=== PATIENT | female | born 1970 | race Caucasian/White ===

== ENCOUNTER 2017-07-11 10:21 | Inpatient (IN) | payer OTHER ==
[~2017-07-11] VITALS: Ht 170.2 cm; Wt 182.8 kg
[~2017-07-11 10:21] MED LIST: ALEVE220 M1
[2017-07-11] MEDS ORDERED: ASPIRIN 81 MG CHEW TAB PO STA (10:23)
[2017-07-11] MEDS ORDERED: HEPARIN SOD (PORCINE) 5,000 UNIT/ML VIAL IV ONE (10:30)
--- NOTE | 2017-07-11 11:13 | Diagnostic Imaging Report ---
PROCEDURE: CT scan of the chest WITH intravenous contrast, using pulmonary embolus protocol. TECHNIQUE: The chest was scanned utilizing a multidetector helical scanner from the lung apex through the level of the adrenal glands after the IV administration of 100 cc of Isovue 370. Coronal and sagittal multiplanar reformations were obtained. COMPARISON: None. INDICATIONS: r/o pe FINDINGS: Examination is limited secondary to patient body habitus with beam hardening artifact secondary to multiple contact points with the scanning gantry. Vasculature: Multiple filling defects extend from the branch point of the left main pulmonary artery into upper and lower lobe segmental branches. Similar findings are present in the upper, lower and middle lobe branches of the right pulmonary arterial tree. Pulmonary outflow tract is at the upper limits of normal in caliber. There is right ventricular dilatation. There is no ectasia or aneurysmal dilatation of the thoracic aorta. Lungs and Airways: No air space consolidation, bronchiectasis, or fibrotic changes. Pleura: No pleural effusion or pneumothorax. Heart and mediastinum: The visualized portions of the thyroid gland appear normal. No axillary, hilar, or mediastinal lymphadenopathy. Soft tissues: Grossly unremarkable. Abdomen: Visualized portions of the liver and spleen are unremarkable. Remainder of the upper abdomen is poorly evaluated. Bones: No osseous destructive lesions. Multilevel degenerative disc changes of the thoracic spine. IMPRESSION: Bilateral acute pulmonary emboli involving lobar and segmental branches of the left upper and lower lobes, and right upper, middle, and lower lobes. Associated right ventricular dilatation suggestive of right heart strain. Findings were discussed with Dr. Kay in the emergency center at 11:10 AM 07/11/2017. Dictated by: Nain Arredondo M.D. on 07/11/2017 at 11:21 Electronically approved by: Nain Arredondo M.D. on 07/11/2017 at 11:21
--- NOTE | 2017-07-11 11:14 | Diagnostic Imaging Report ---
PROCEDURE: CHEST SINGLE (PORTABLE) COMPARISON: None. INDICATIONS: SHORTNESS OF BREATH FINDINGS: Lungs are well-inflated. No focal consolidation, pleural effusion, or pneumothorax. Cardiomediastinal contour and pulmonary vasculature are within normal limits when accounting for portable AP technique. No acute osseous abnormality. CONCLUSION: No acute cardiopulmonary abnormality. For description of bilateral pulmonary emboli refer to CT subsequently performed CT scan of the chest with contrast also from 07/11/2017. Dictated by: Nain Arredondo M.D. on 07/11/2017 at 11:22 Electronically approved by: Nain Arredondo M.D. on 07/11/2017 at 11:22
[2017-07-11] MEDS: HEPARIN 25,000U/0.45% NS 250ML 1,500 UNIT in SODIUM CHLORIDE 0.9% 250ML 0 ML IV SCH (11:15)
[2017-07-11 11:31] LABS: BASOPHILS % 0.2 % (0.0-1.0); EOSINOPHILS # (AUTO) 0.1 (0.0-0.4); EOSINOPHILS % 0.8 % (0.0-6.0); HEMOGLOBIN 14.8 g/dL (12.0-16.0); LYMPHOCYTES # (AUTO) 2.3 (1.0-3.2); LYMPHOCYTES % 23.8 % (18.0-39.1); MEAN CORPUSCULAR HEMOGLOBIN 27.4 pg (28-32); MEAN CORPUSCULAR HGB CONC 32.9 g/dL (31-35); MEAN CORPUSCULAR VOLUME 83.2 fL (81-99); MONOCYTES # (AUTO) 0.6 (0.2-0.8); MONOCYTES % 5.8 % (4.4-11.3); NEUTROPHILS # (AUTO) 6.7 (2.1-6.9); NEUTROPHILS % 69.2 % (38.7-80.0); PLATELET COUNT 225 x10e3/uL (140-360); RED BLOOD COUNT 5.41 x10e6/uL (3.6-5.1); RED CELL DISTRIBUTION WIDTH 13.3 % (11.7-14.4)
[2017-07-11 11:44] LABS: INR 0.85
[2017-07-11 11:45] LABS: PARTIAL THROMBOPLASTIN TIME 27.5 seconds (23.8-35.5)
[2017-07-11 11:51] LABS: ALANINE AMINOTRANSFERASE 16 IU/L (0-55); ALBUMIN 3.7 g/dL (3.5-5.0); ALBUMIN/GLOBULIN RATIO 0.9 (0.8-2.0); ALKALINE PHOSPHATASE 72 IU/L (40-150); ANION GAP 14.1 mmol/L (8-16); BLOOD UREA NITROGEN 13 mg/dL (7-26); BUN/CREATININE RATIO 16 (6-25); CALCIUM 9.7 mg/dL (8.4-10.2); CARBON DIOXIDE 22 mmol/L (22-29); CHLORIDE 109 mmol/L (98-107); CREATINE KINASE 88 IU/L (29-168); EST GLOMERULAR FILTRATION RATE > 60 ML/MIN (60-); GLUCOSE 119 mg/dL (74-118); POTASSIUM 4.1 mmol/L (3.5-5.1); SODIUM 141 mmol/L (136-145)
[2017-07-11] MEDS ORDERED: LISINOPRIL2.5 MG PO (12:54)
[2017-07-11 13:22] LABS: BILIRUBIN,URINE NEGATIVE (NEGATIVE); KETONES,URINE NEGATIVE (NEGATIVE); LEUKOCYTE ESTERASE ,URINE NEGATIVE (NEGATIVE); NITRITE,URINE NEGATIVE (NEGATIVE); PREGNANCY TEST, URINE NEGATIVE (NEGATIVE); PROTEIN,URINE DIPSTICK NEGATIVE (NEGATIVE); URINE UROBILINOGEN 0.2 mg/dL (0.2 - 1)
[2017-07-11 13:24] LABS: CLARITY,URINE CLEAR (CLEAR); COLOR,URINE YELLOW (YELLOW)
[2017-07-11 13:42] LABS: EPITHELIAL CELLS,URINE MANY /LPF
[2017-07-11 13:43] LABS: WBC,URINE (MAN) 0-5 /HPF (0-5)
--- NOTE | 2017-07-11 14:49 | Consultation ---
DATE OF CONSULTATION: July 11, 2017 PULMONARY/CRITICAL CARE CONSULTATION PRIMARY CARE PHYSICIAN: Dr. Geoff Peter REASON FOR CONSULTATION: Acute pulmonary embolism. CHIEF COMPLAINTS: Shortness of breath. HPI: Ms. Collins is a 47-year-old female. She is a regular patient of Dr. Barros. She presented to the emergency room with worsening shortness of breath for the last 3 days. She was getting short of breath on walking short distances in and around the house, which is something new for her. She went to see Dr. Barros in the office where she became hypoxic, and she was transferred to the emergency room. She reported episodes of dizziness, near syncope and numbness and tingling in her arm as well. She denies any chest pain, nausea, vomiting, diarrhea or focal weakness. REVIEW OF SYSTEMS GENERAL: Denies any fever or chills. HEENT: Denies any head trauma or head injury. ENT: Denies any earache, nosebleed, throat pain. CVS: Denies any chest pain. RESPIRATORY: As in HPI. GI: Denies any nausea or vomiting. OTHER: The rest of the review of systems are negative except as in HPI. PAST MEDICAL HISTORY: Hypertension. PAST SURGICAL HISTORY: Knee replacement a year ago. FAMILY AND SOCIAL HISTORY: She is a lifelong nonsmoker. Does not drink. Denies any family history of blood clots. PHYSICAL EXAMINATION VITAL SIGNS: Temperature 98.6, pulse of 96, blood pressure 136/91, respiratory rate 18 to 20 per minute. O2 sat is 96% on 4 L nasal cannula. SKIN: Warm and dry. GENERAL APPEARANCE: Morbidly obese, awake and alert, following commands. HEENT: Head is atraumatic and normocephalic. Pupils are reactive. NECK: Supple. No JVD. Thyroid not enlarged. CHEST: Clear to auscultation bilaterally. No wheezing. No crackles. HEART: S1, S2 audible. ABDOMEN: Soft. Nontender and nondistended. EXTREMITIES: Trace pedal edema. NEUROLOGIC: Awake and alert, following commands, responding to questions appropriately. CT OF THE CHEST: I reviewed the films. Patient has large pulmonary embolism, which is bilateral, involving the lobar branches and subsegmental branches. ECHOCARDIOGRAM: RV strain. EKG: S1Q3T3 pattern. LABS: White count 9.7, hemoglobin 14.8, platelets 225. Chemistries: Sodium 141, potassium 4.1, chloride 109, BUN 13, creatinine 0.8. BNP 332. Troponin is 0.250. ASSESSMENT AND PLAN: Jaida Collins is a 47-year-old female who presented with worsening shortness of breath. CT is showing evidence of pulmonary embolism. No recent travel. No history of malignancy. No recent trauma or hospitalization. 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 No family history of blood clots as well. CURRENT PROBLEMS 1. Acute pulmonary embolism. 2. Acute hypoxic respiratory failure secondary to pulmonary embolism. 3. Right ventricular strain secondary to pulmonary embolism. PLAN 1. I will continue the patient on heparin as started. 2. At this point, the patient is hemodynamically stable. Blood pressure and heart rate have been stable, so no indication for thrombolytics. However, respiratory status is precarious. Recommend observing the patient in ICU. Discussed with the ER physician, also discussed with Dr. Peter. cc time 50 min Thank you for this consult. Job#: [id number] KIARRA RICHARD
[2017-07-11] MEDS ORDERED: SODIUM CHLORIDE 0.9% 50ML 50 ML ONE (17:28)
[2017-07-11] MEDS ORDERED: IOPAMIDOL 370 MG/ML 200 ML INFUS..BTL INJ ONE (17:28)
[2017-07-11 18:47] LABS: CREATINE KINASE MB 4.3 ng/mL (0.00-5.00)
[2017-07-11 18:56] LABS: TROPONIN I 0.3 ng/mL (0-0.300)
[2017-07-12] VITALS (20 sets, daily range): BP systolic 102–126; BP diastolic 48–84
[2017-07-12] MEDS: HEPARIN 25,000U/0.45% NS 250ML 1,500 UNIT in SODIUM CHLORIDE 0.9% 250ML 0 ML IV SCH ×3 (02:00→19:15)
[2017-07-12 06:01] LABS: BASOPHILS % 0.4 % (0.0-1.0); EOSINOPHILS # (AUTO) 0.2 (0.0-0.4); EOSINOPHILS % 2.3 % (0.0-6.0); HEMATOCRIT 38.6 % (34.2-44.1); HEMOGLOBIN 12.5 g/dL (12.0-16.0); LYMPHOCYTES # (AUTO) 2.7 (1.0-3.2); LYMPHOCYTES % 32.9 % (18.0-39.1); MEAN CORPUSCULAR HEMOGLOBIN 27.2 pg (28-32); MEAN CORPUSCULAR HGB CONC 32.4 g/dL (31-35); MEAN CORPUSCULAR VOLUME 84.1 fL (81-99); MONOCYTES # (AUTO) 0.6 (0.2-0.8); MONOCYTES % 6.8 % (4.4-11.3); NEUTROPHILS # (AUTO) 4.6 (2.1-6.9); NEUTROPHILS % 57.2 % (38.7-80.0); PLATELET COUNT 198 x10e3/uL (140-360); RED BLOOD COUNT 4.59 x10e6/uL (3.6-5.1); RED CELL DISTRIBUTION WIDTH 13.4 % (11.7-14.4)
[2017-07-12 06:14] LABS: INR 0.95; PROTHROMBIN TIME 13.2 seconds (11.9-14.5)
[2017-07-12] MEDS ORDERED: PNEUMOCOCCAL VACCINE POLYVALENT 23 MCG/0.5 ML VIAL IM SCH (06:15)
[2017-07-12] MEDS ORDERED: INFLUENZA VIRUS VAC SPLIT INJ 0.5 ML SYR IM SCH (06:15)
[2017-07-12 06:29] LABS: ALANINE AMINOTRANSFERASE 13 IU/L (0-55); ALKALINE PHOSPHATASE 56 IU/L (40-150); ANION GAP 13.3 mmol/L (8-16); BLOOD UREA NITROGEN 15 mg/dL (7-26); BUN/CREATININE RATIO 19 (6-25); CALCIUM 8.6 mg/dL (8.4-10.2); CARBON DIOXIDE 21 mmol/L (22-29); CHLORIDE 110 mmol/L (98-107); CREATINE KINASE 103 IU/L (29-168); CREATININE, SERUM 0.77 mg/dL (0.57-1.11); EST GLOMERULAR FILTRATION RATE > 60 ML/MIN (60-); GLUCOSE 112 mg/dL (74-118); POTASSIUM 4.3 mmol/L (3.5-5.1); SODIUM 140 mmol/L (136-145)
[2017-07-12 06:40] LABS: TROPONIN I 0.537 ng/mL (0-0.300)
--- NOTE | 2017-07-12 07:07 | Diagnostic Imaging Report ---
EXAMINATION: CHEST SINGLE (PORTABLE) INDICATION: Pulmonary embolism COMPARISON: None FINDINGS: TUBES and LINES: None. LUNGS: Lungs are well inflated. Lungs are clear. There is no evidence of pneumonia or pulmonary edema. PLEURA: No pleural effusion or pneumothorax. HEART AND MEDIASTINUM: The cardiomediastinal silhouette is unremarkable. BONES AND SOFT TISSUES: No acute osseous lesion. Soft tissues are unremarkable. UPPER ABDOMEN: No free air under the diaphragm. IMPRESSION: No acute thoracic abnormality. Signed by: Dr. Kevin Benavides M.D. on 07/12/2017 7:04 AM
[2017-07-12] MEDS: ACETAMINOPHEN 325 MG TAB PO PRN (12:40)
[2017-07-12] MEDS ORDERED: HEPARIN 25,000U/0.45% NS 250ML 250 ML ONE (19:05)
[2017-07-13] VITALS (7 sets, daily range): BP systolic 123–145; BP diastolic 62–84
[2017-07-13 07:58] LABS: BASOPHILS % 0.4 % (0.0-1.0); EOSINOPHILS # (AUTO) 0.3 (0.0-0.4); EOSINOPHILS % 3.4 % (0.0-6.0); HEMATOCRIT 38.1 % (34.2-44.1); HEMOGLOBIN 12.5 g/dL (12.0-16.0); LYMPHOCYTES # (AUTO) 2.4 (1.0-3.2); LYMPHOCYTES % 33.1 % (18.0-39.1); MEAN CORPUSCULAR HEMOGLOBIN 27.6 pg (28-32); MEAN CORPUSCULAR HGB CONC 32.8 g/dL (31-35); MEAN CORPUSCULAR VOLUME 84.1 fL (81-99); MONOCYTES # (AUTO) 0.5 (0.2-0.8); MONOCYTES % 7.2 % (4.4-11.3); NEUTROPHILS # (AUTO) 4.1 (2.1-6.9); NEUTROPHILS % 55.5 % (38.7-80.0); PLATELET COUNT 203 x10e3/uL (140-360); RED BLOOD COUNT 4.53 x10e6/uL (3.6-5.1); RED CELL DISTRIBUTION WIDTH 13.2 % (11.7-14.4)
[2017-07-13 08:12] LABS: ANION GAP 11.2 mmol/L (8-16); BLOOD UREA NITROGEN 14 mg/dL (7-26); BUN/CREATININE RATIO 18 (6-25); CALCIUM 8.6 mg/dL (8.4-10.2); CARBON DIOXIDE 23 mmol/L (22-29); CHLORIDE 108 mmol/L (98-107); CREATININE, SERUM 0.79 mg/dL (0.57-1.11); EST GLOMERULAR FILTRATION RATE > 60 ML/MIN (60-); GLUCOSE 112 mg/dL (74-118); POTASSIUM 4.2 mmol/L (3.5-5.1); SODIUM 138 mmol/L (136-145)
[2017-07-13] MEDS ORDERED: HEPARIN 25,000U/0.45% NS 250ML 250 ML ONE (08:21)
[2017-07-13] MEDS: HEPARIN 25,000U/0.45% NS 250ML 1,500 UNIT in SODIUM CHLORIDE 0.9% 250ML 0 ML IV SCH (10:00)
[2017-07-14] VITALS (7 sets, daily range): BP systolic 119–152; BP diastolic 58–71
[2017-07-14] MEDS ORDERED: HEPARIN 25,000U/0.45% NS 250ML 250 ML ONE (08:34)
[2017-07-14] MEDS ORDERED: AMLODIPINE BESYLATE 5 MG TAB PO SCH (09:00)
[2017-07-14] MEDS: HEPARIN 25,000U/0.45% NS 250ML 1,500 UNIT in SODIUM CHLORIDE 0.9% 250ML 0 ML IV SCH (16:05)
[2017-07-15] VITALS (8 sets, daily range): BP systolic 108–141; BP diastolic 57–75
[2017-07-15] MEDS: ACETAMINOPHEN 325 MG TAB PO PRN (03:38)
[2017-07-15] MEDS: HEPARIN 25,000U/0.45% NS 250ML 1,500 UNIT in SODIUM CHLORIDE 0.9% 250ML 0 ML IV SCH ×2 (06:13→23:14)
[2017-07-15] MEDS: LISINOPRIL 10 MG TAB PO SCH (08:45)
[2017-07-15] MEDS: WARFARIN SOD 5 MG TAB PO SCH (16:35)
[2017-07-16] VITALS (7 sets, daily range): BP systolic 103–127; BP diastolic 57–84
[2017-07-16] MEDS: LISINOPRIL 10 MG TAB PO SCH (08:23)
[2017-07-16 08:36] LABS: INR 0.9; PROTHROMBIN TIME 12.6 seconds (11.9-14.5)
[2017-07-16] MEDS: HEPARIN 25,000U/0.45% NS 250ML 1,500 UNIT in SODIUM CHLORIDE 0.9% 250ML 0 ML IV SCH (10:05)
[2017-07-16] MEDS: WARFARIN SOD 5 MG TAB PO SCH (16:35)
[2017-07-17] VITALS (8 sets, daily range): BP systolic 105–143; BP diastolic 58–75
[2017-07-17] MEDS: HEPARIN 25,000U/0.45% NS 250ML 25,000 UNIT in SODIUM CHLORIDE 0.9% 250ML 0 ML IV SCH (01:45)
[2017-07-17 07:36] LABS: INR 0.93; PROTHROMBIN TIME 12.9 seconds (11.9-14.5)
[2017-07-17 07:38] LABS: PARTIAL THROMBOPLASTIN TIME 69.9 seconds (23.8-35.5)
[2017-07-17] MEDS: LISINOPRIL 10 MG TAB PO SCH (10:40)
[2017-07-17] MEDS ORDERED: WARFARIN SOD 5 MG TAB PO ONE (15:15)
[2017-07-17] MEDS: WARFARIN SOD 5 MG TAB PO SCH (17:36)
[2017-07-18] VITALS: BP 104/57
[2017-07-18 04:00] VITALS: BP 105/57
[2017-07-18] MEDS: HEPARIN 25,000U/0.45% NS 250ML 25,000 UNIT in SODIUM CHLORIDE 0.9% 250ML 0 ML IV SCH (04:10)
[2017-07-18 07:54] LABS: INR 0.95; PROTHROMBIN TIME 13.1 seconds (11.9-14.5)
[2017-07-18 07:56] LABS: PARTIAL THROMBOPLASTIN TIME 87.8 seconds (23.8-35.5)
[2017-07-18 08:05] VITALS: BP 114/54
[2017-07-18 10:40] VITALS: BP 114/54
[2017-07-18] MEDS: LISINOPRIL 10 MG TAB PO SCH (10:40)
[2017-07-18 12:00] VITALS: BP 123/80
[2017-07-18] MEDS ORDERED: WARFARIN SOD 5 MG TAB PO SCH (17:00)
[2017-07-18] MEDS ORDERED: WARFARIN SOD 5 MG TAB PO NR (17:00)
[2017-07-18] MEDS ORDERED: HEPARIN 25,000U/0.45% NS 250ML 250 ML ONE (17:16)
[2017-07-18 20:00] VITALS: BP 125/68
[2017-07-19] VITALS (7 sets, daily range): BP systolic 116–149; BP diastolic 53–86
[2017-07-19] MEDS: HEPARIN 25,000U/0.45% NS 250ML 25,000 UNIT in SODIUM CHLORIDE 0.9% 250ML 0 ML IV SCH ×2 (04:41→22:00)
[2017-07-19] MEDS ORDERED: HEPARIN 25,000U/0.45% NS 250ML 250 ML ONE (04:44)
[2017-07-19 07:48] LABS: INR 1.11; PROTHROMBIN TIME 14.9 seconds (11.9-14.5)
[2017-07-19] MEDS: LISINOPRIL 10 MG TAB PO SCH (09:53)
--- NOTE | 2017-07-19 12:34 | Consultation ---
DATE OF CONSULTATION: July 15, 2017 REQUESTING PHYSICIAN: Dr. Guille Peter. HISTORY OF PRESENT ILLNESS: Jaida Savage is a 47-year-old white female who had an unprovoked pulmonary embolus, subsequently admitted for further evaluation, history of having had shortness of breath for approximately 3 days prior to seeing Dr. Barros, subsequently was found to be hypoxic, came to the emergency room and subsequently admitted for further evaluation and treatment. PAST MEDICAL ILLNESSES: History of hypertension. SURGICAL HISTORY: She has knee replacement a year back. SOCIAL HISTORY: Nonsmoker. FAMILY HISTORY: Noncontributory. ALLERGIES: REPORTED NONE. MEDICATIONS At this time: 1. Sodium chloride. 2. Lisinopril. 3. Weight-based heparin protocol. REVIEW OF SYSTEMS HEENT: Normal. CARDIAC: History of hypertension. RESPIRATORY: Now pulmonary embolus. GI: Normal. : Normal. MUSCULOSKELETAL: History of knee replacement a year back. NEUROENDOCRINE: Essentially normal. PHYSICAL EXAMINATION GENERAL: A morbidly obese female. NECK: No adenopathy. HEART: Within normal limits. LUNGS: Clear. BREASTS: Deferred. ABDOMEN: Obese. There is no hepatosplenomegaly. RECTAL: Deferred. VAGINAL: Deferred. CENTRAL NERVOUS SYSTEM: Essentially normal. EXTREMITIES: Scar of the knee replacement. LABORATORY DATA: Shows a hemoglobin of 14.8, hematocrit 45, white count of 9700, platelets of 225,000. Chemistry: Sodium of 141, potassium of 4.1, chloride 79, CO2 of 22, BUN 13, creatinine 0.8, glucose 119, calcium 9.7, bilirubin 0.5. SGOT 13, SGPT 16, alkaline phosphatase 72. BNP high at 332. Low total proteins of 6.1, low albumin of 3, globulin is 3.1. IMAGING: Confirmed CT of the chest on 07/11/2017 to show bilateral acute pulmonary emboli left upper lobe, lower lobe, right upper lobe, right middle lobe, and right lower lobe. IMPRESSION 1. Pulmonary embolus, unprovoked. 2. Hypoproteinemia (6.1). 3. Hypoalbuminemia (3.1). 4. Hypertension. 5. History of endocervical polyp excised on 05/21/2016. 6. Morbid obesity. PLAN, COMMENTS AND SUGGESTIONS 1. Suggest to add Coumadin. 2. Since this is unprovoked, at least the literature is to keep these patients on "long-term" anticoagulation; however, the patient could be given 6 months of aggressive anticoagulation, keep the INR between 2 and 3, take the Coumadin off for 1 month, do a thorough thrombophilia profile. If she does have thrombophilia, she does qualify for lifetime anticoagulation. I certainly suggest long-term anticoagulation in this lady because this was an unprovoked massive pulmonary emboli. Thank you very much for allowing me to participate in management of this patient. I will follow this patient during this hospitalization. Job#: [id number] VAS cc:MD James Colon MD
[2017-07-19] MEDS: WARFARIN SOD 5 MG TAB PO SCH (17:00)
[2017-07-19] MEDS: ACETAMINOPHEN 325 MG TAB PO PRN (20:30)
[2017-07-20] VITALS (8 sets, daily range): BP systolic 105–133; BP diastolic 63–88
[2017-07-20 04:22] LABS: INR 1.33; PROTHROMBIN TIME 17.2 seconds (11.9-14.5)
[2017-07-20] MEDS: ACETAMINOPHEN 325 MG TAB PO PRN (04:48)
[2017-07-20] MEDS: LISINOPRIL 10 MG TAB PO SCH (08:33)
[2017-07-20] MEDS ORDERED: WARFARIN SOD 3 MG TAB PO ONE ×2 (11:00→15:00)
[2017-07-20] MEDS ORDERED: HEPARIN 25,000U/0.45% NS 250ML 250 ML ONE (15:07)
[2017-07-20] MEDS: HEPARIN 25,000U/0.45% NS 250ML 25,000 UNIT in SODIUM CHLORIDE 0.9% 250ML 0 ML IV SCH (15:08)
[2017-07-20] MEDS: WARFARIN SOD 5 MG TAB PO SCH (16:29)
[2017-07-21] VITALS (8 sets, daily range): BP systolic 103–113; BP diastolic 51–80
[2017-07-21] MEDS: LISINOPRIL 10 MG TAB PO SCH (08:10)
[2017-07-21 09:57] LABS: INR 1.4; PROTHROMBIN TIME 17.9 seconds (11.9-14.5)
[2017-07-21] MEDS ORDERED: WARFARIN SOD 3 MG TAB PO ONE ×2 (11:30→17:00)
[2017-07-21] MEDS: HEPARIN 25,000U/0.45% NS 250ML 25,000 UNIT in SODIUM CHLORIDE 0.9% 250ML 0 ML IV SCH (12:28)
[2017-07-21] MEDS ORDERED: HEPARIN 25,000U/0.45% NS 250ML 250 ML ONE (12:29)
[2017-07-21] MEDS: WARFARIN SOD 5 MG TAB PO SCH (16:40)
[2017-07-22] VITALS (7 sets, daily range): BP systolic 111–141; BP diastolic 55–86
[2017-07-22 06:02] LABS: INR 1.61
[2017-07-22] MEDS: LISINOPRIL 10 MG TAB PO SCH (11:00)
[2017-07-22] MEDS: HEPARIN 25,000U/0.45% NS 250ML 25,000 UNIT in SODIUM CHLORIDE 0.9% 250ML 0 ML IV SCH (14:31)
[2017-07-22] MEDS ORDERED: HEPARIN 25,000U/0.45% NS 250ML 250 ML ONE (14:34)
[2017-07-22] MEDS ORDERED: WARFARIN SOD 3 MG TAB PO ONE (17:00)
[2017-07-22] MEDS: WARFARIN SOD 5 MG TAB PO SCH (17:05)
[2017-07-23] VITALS: BP 108/63
[2017-07-23 04:00] VITALS: BP 109/53
[2017-07-23 08:30] LABS: INR 1.89; PROTHROMBIN TIME 22.7 seconds (11.9-14.5)
[2017-07-23 09:51] VITALS: BP 129/60
[2017-07-23 09:55] VITALS: BP 129/60
[2017-07-23] MEDS: LISINOPRIL 10 MG TAB PO SCH (11:19)
[2017-07-23] MEDS ORDERED: INFLUENZA VIRUS VAC SPLIT INJ 0.5 ML SYR IM ONE (13:23)
[2017-07-23] MEDS ORDERED: PNEUMOCOCCAL VACCINE POLYVALENT 23 MCG/0.5 ML VIAL ONE (13:23)
[2017-07-23 14:34] VITALS: BP 129/66
== END 2017-07-23 13:50 | disposition home or self-care (01) | DRG 175 ==
LOC: ER 10:21 → ERHOLD 12:25 → ICU 23:53 → MED/SURG 07-12 10:41
DX: I26.99 Other pulmonary embolism without acute cor pulmonale (principal); J96.01 Acute respiratory failure with hypoxia; Z68.44 Body mass index [BMI] 60.0-69.9, adult; I82.4Y2 Acute embolism and thrombosis of unspecified deep veins of left proximal lower extremity; I10 Essential (primary) hypertension; E66.01 Morbid (severe) obesity due to excess calories; E77.8 Other disorders of glycoprotein metabolism; E88.09 Other disorders of plasma-protein metabolism, not elsewhere classified; I51.89 Other ill-defined heart diseases
CPT/HCPCS: 36415; 71010; 71260; 80048; 80053; 81001; 81025; 82550; 82553; 83880; 84484; 85025; 85610; 85730; 90732; 93005; 93306; 93970; 96361; 96365; 99284; J1644; J7050; Q9967

== ENCOUNTER → 2017-08-05 | Outpatient (CLI) | payer OTHER ==
[~2017-08-05] MED LIST changes: +LISINOPRIL2.5 MG PO
--- NOTE | 2017-08-20 08:24 | Diagnostic Imaging Report ---
#[id number] - MGSCRBIL #BILATERAL FIRST EVER DIGITAL SCREENING MAMMOGRAM WITH CAD: 08/05/2017 CLINICAL: Routine screening. Baseline exam. No prior exams were available for comparison. Current study contains 8 films. The tissue of both breasts is predominantly fatty. Current study was also evaluated with a Computer Aided Detection (CAD) system. There are benign calcifications in the left breast. No significant masses, calcifications, or other findings are seen in either breast. IMPRESSION: BENIGN There is no mammographic evidence of malignancy. A 1 year screening mammogram is recommended. The patient will be notified by letter of the results. David Whitneygarcia romero/mirella:08/19/2017 07:54:45 [employer] Crewmember: Amber GARCIA)(M), [facility] letter sent: Normal Exam Mammogram BI-RADS: 2 Benign
== END ==
LOC: MAMMO 10:11
PROVIDERS: ATTEND Family Medicine
DX: Z12.31 Encounter for screening mammogram for malignant neoplasm of breast (principal)
CPT/HCPCS: 77067

== ENCOUNTER → 2019-05-05 | Day surgery (SDC) | payer OTHER ==
[~2019-05-05] VITALS: Ht 172.7 cm; Wt 186.0 kg
[~2019-05-05] MED LIST changes: +ALPRAZOLAM 0.5 MG TAB ONE; +ATORVASTATIN CA20 MG PO; +BENICAR HCT 401 EAC1 PO; +DIPHENHYDRAMINE HCL 25 MG CAP ONE; +FENTANYL CITRATE/PF 100MCG/2 ML INJ ONE; +HEPARIN SOD/SOD CHLORIDE 2,000 ML ONE; +LIDOCAINE HCL 2% LOCAL 20 ML VIAL ONE; +MIDAZOLAM HCL 2 MG/2 ML VIAL ONE; +SODIUM CHLORIDE 0.9% 1000ML 1,000 ML ONE; +XARELTO20 MG PO; +ZETIA10 MG PO
--- OUTSIDE RECORDS SUMMARY | 2019-05-05 11:32 | XMS REPORT ---
Author Author [facility] Address Unknown Phone Unavailable Care Team Providers Care Secondary Teacher Name Role Phone SUN MARTÍNEZ Unavailable Unavailable TOM WELCH Unavailable Unavailable Problems This patient has no known problems. Allergies, Adverse Reactions, Alerts This patient has no known allergies or adverse reactions. Medications This patient has no known medications. Results Test Description Test Time Test Comments Text Results Atomic Results Result Comments MAMMOGRAPHY DIGITAL SCR BILAT [place] [address] Patient Name: LEANDRO MAST MR #: [id number] : 1970 Age/Sex: 47/F Req #: [id number] Adm Physician: Ordered by: SUN MARTÍNEZ DO Report #: [id number] Location: MAMMO Room/Bed: Procedure: [id number] MG/MAMMOGRAPHY DIGITAL SCR BILAT Exam Date: 08/05/17 Exam Time: 1030 REPORT STATUS: Signed #[id number] - MGSCRBIL #BILATERAL FIRST EVER DIGITAL SCREENING MAMMOGRAM WITH CAD: 08/05/2017 CLINICAL: Routine screening. Baseline exam. No prior exams were available for comparison. Current study contains 8 films. The tissue of both breasts is predominantly fatty. Current study was also evaluated with a Computer Aided Detection (CAD) system. There are benign calcifications in the left breast. No significant masses, calcifications, or other findings are seen in either breast. IMPRESSION: BENIGN There is no mammographic evidence of malignancy. A 1 year screening mammogram is recommended. The patient will be notified by letter of the results. Arslan romero/sean:08/19/2017 07:54:45 Media Job Titles: Amber GARCIA)(Brian), [facility] letter sent: Normal Exam Mammogram BI-RADS: 2 Benign Dictated By: ARSLAN RUBIN DO 3 Transcribed By: SEAN on 08/19/17753 COPY TO: SUN MARTÍNEZ DO CHEST SINGLE (PORTABLE) [place] [address] Patient Name: LEANDRO MAST MR #: [id number] : 1970 Age/Sex: 47/F Req #: [id number] Adm Physician: TOM WELCH MD Ordered by: LUCAS ROJAS NUT TAPPER Report #: [id number] Location: ICU Room/Bed: ICU [facility] Procedure: [id number] DX/CHEST SINGLE (PORTABLE) Exam Date: 07/12/17 Exam Time: 0620 REPORT STATUS: Signed EXAMINATION: CHEST SINGLE (PORTABLE) INDICATION: Pulmonary embolism COMPARISON: None FINDINGS: TUBES and LINES: None. LUNGS: Lungs are well inflated. Lungs are clear. There is no evidence of pneumonia or pulmonary edema. PLEURA: No pleural effusion or pneumothorax. HEART AND MEDIASTINUM: The cardiomediastinal silhouette is unremarkable. BONES AND SOFT TISSUES: No acute osseous lesion. Soft tissues are unremarkable. UPPER ABDOMEN: No free air under the diaphragm. IMPRESSION: No acute thoracic abnormality. Signed by: Dr. Kevin Benavides M.D. on 07/12/2017 7:04 AM Dictated By: KEVIN RIZO MD 3 Transcribed By: DEVONTE on 07/12/17703 COPY TO: LUCAS ROJAS NP CT CHEST W [place] [address] Patient Name: LEANDRO MAST MR #: [id number] : 1970 Age/Sex: 47/F Req #: [id number] Adm Physician: Ordered by: JULITA AGUILAR MD Report #: [id number] Location: ER Room/Bed: Procedure: [id number] CT/CT CHEST W Exam Date: 07/11/17 Exam Time: 1040 REPORT STATUS: Signed PROCEDURE: CT scan of the chest WITH intravenous contrast, using pulmonary embolus protocol. TECHNIQUE: The chest was scanned utilizing a multidetector helical scanner from the lung apex through the level of the adrenal glands after the IV administration of 100 cc of Isovue 370. Coronal and sagittal multiplanar reformations were obtained. COMPARISON: None. INDICATIONS: r/o pe FINDINGS: Examination is limited secondary to patient body habitus with beam hardening artifact secondary to multiple contact points with the scanning gantry. Vasculature: Multiple filling defects extend from the branch point of the left main pulmonary artery into upper and lower lobe segmental branches. Similar findings are present in the upper, lower and middle lobe branches of the right pulmonary arterial tree. Pulmonary outflow tract is at the upper limits of normal in caliber. There is right ventricular dilatation. There is no ectasia or aneurysmal dilatation of the thoracic aorta. Lungs and Airways: No air space consolidation, bronchiectasis, or fibrotic changes. Pleura: No pleural effusion or pneumothorax. Heart and mediastinum: The visualized portions of the thyroid gland appear normal. No axillary, hilar, or mediastinal lymphadenopathy. Soft tissues: Grossly unremarkable. Abdomen: Visualized portions of the liver and spleen are unremarkable. Remainder of the upper abdomen is poorly evaluated. Bones: No osseous destructive lesions. Multilevel degenerative disc changes of the thoracic spine. IMPRESSION: Bilateral acute pulmonary emboli involving lobar and segmental branches of the left upper and lower lobes, and right upper, middle, and lower lobes. Associated right ventricular dilatation suggestive of right heart strain. Findings were discussed with Dr. Aguilar in the emergency center at 11:10 AM 07/11/2017. Dictated by: Santi Paulino M.D. on 07/11/2017 at 11:21 Electronically approved by: Santi Paulino M.D. on 07/11/2017 at 11:21 Dictated By: SANTI PAULINO MD 1121 Transcribed By: LORA on 07/11/17 1121 COPY TO: JULITA AGUILAR MD CHEST SINGLE (PORTABLE) [place] [address] Patient Name: LEANDRO MAST MR #: [id number] : 1970 Age/Sex: 47/F Req #: [id number] Adm Physician: Ordered by: JULITA AGUILAR MD Report #: [id number] Location: ER Room/Bed: Procedure: [id number] DX/CHEST SINGLE (PORTABLE) Exam Date: 07/11/17 Exam Time: 1100 REPORT STATUS: Signed PROCEDURE: CHEST SINGLE (PORTABLE) COMPARISON: None. INDICATIONS: SHORTNESS OF BREATH FINDINGS: Lungs are well-inflated. No focal consolidation, pleural effusion, or pneumothorax. Cardiomediastinal contour and pulmonary vasculature are within normal limits when accounting for portable AP technique. No acute osseous abnormality. CONCLUSION: No acute cardiopulmonary abnormality. For description of bilateral pulmonary emboli refer to CT subsequently performed CT scan of the chest with contrast also from 07/11/2017. Dictated by: Santi Paulino M.D. on 07/11/2017 at 11:22 Electronically approved by: Santi Paulino M.D. on 07/11/2017 at 11:22 Dictated By: SANTI PAULINO MD 1122 Transcribed By: LORA on 07/11/17 1122 COPY TO: JULITA AGUILAR MD
[2019-05-05 14:07] VITALS: BP 128/64
--- NOTE | 2019-05-05 17:00 | NUR ---
bedside report received from Demetrius Streeter RN. Alert oriented and appropriate, PERRLA, respirations even and unlabored to room air. Pulses x4 extremities equal and strong. + neurovascular function to right hand present. TR band present. Cap fill brisk < 3 sec. Skin warm and dry integrity appears intact. IV 22g to left hand presents healthy w/o s/s of infiltration or complaint. Abdomen soft and supple. pt offered toileting, denies need to urinate or defecate. No personal affects with patient. Family at bedside. Pt and family verbalizes understanding of DC requirements and teaching. Placed on bedside monitor ACU 8. Currently w/o complaint of pain or need. bed low and locked , side rails up x2 , call light within reach.
--- NOTE | 2019-05-05 17:45 | NUR ---
TR band successfully removed w/o incident. 7Fr sheath removed form Right AC . Discharge teaching performed and repeated back. VS wnl. No acute changes. from baseline
--- NOTE | 2019-05-05 18:15 | NUR ---
Pt meets DC criteria. right radial assessed for s/s of complication and presence of hematoma. Overall skin warm, dry, no discolor, and pulses present. IV removed from left hand. Distal tip appears intact. VS WNL. Pt denies pain, sob, or need at this time. Family at bedside. Review of discharge paperwork and follow up instructions. wrist brace reinforced removal next day with dressing. verbalized understanding. Pt to wheelchair and transported to front of hospital. Transferred to private vehicle under own strength w/o incident with DC paperwork in hand. - cgf
--- NOTE | 2019-05-06 15:41 | Operative Report ---
DATE OF PROCEDURE: 05/05/2019 SURGEON: João Nicholson MD CARDIAC STEM SHAPER PROCEDURE NOTE INDICATION: 1. Coronary artery disease, abnormal stress test. 2. Congestive heart failure. PROCEDURES PERFORMED: 1. Left heart catheterization, selective coronary angiography. 2. Balloon flotation right heart catheterization. 3. Deployment right wrist TR band. COMPLICATIONS: None. RECOMMENDATIONS: Medical therapy. DESCRIPTION OF PROCEDURE: Access obtained in the right radial artery using ultrasound guidance. A 5-Yakut sheath was placed. Access obtained in the right cephalic vein using ultrasound guidance, seven-Yakut sheath was placed. Balloon flotation right heart catheterization revealed normal findings including pulmonary artery pressure 38/12 with a mean of 15 mmHg. Pulmonary capillary wedge pressure 11 mmHg. Right atrial pressure 10 mmHg. Cardiac output 6.4 L a minute. LV end-diastolic pressure of 12 mmHg. Coronary angiography was performed with demonstrating minimal coronary artery disease, 10% luminal stenosis diffusely. No critical stenosis or occlusions. No intervention was deemed necessary. Right wrist TR band applied. Seven-Yakut sheath under manual pressure. The patient discharged home same day. João Nicholson MD KSB/MODL /[id number]
--- NOTE | 2019-05-25 16:17 | Operative Report ---
DATE OF PROCEDURE: 05/05/2019 SURGEON: João Nicholson MD INDICATIONS: Coronary artery disease and congestive heart failure. PROCEDURES PERFORMED: 1. Left heart catheterization, selective coronary angiography. 2. Right heart catheterization. COMPLICATIONS: None. RECOMMENDATIONS: Medical therapy. DESCRIPTION OF PROCEDURE: Access obtained in the right radial artery. A 5-Faroese sheath was placed. Access obtained in the right cephalic vein. A 7-Faroese sheath was placed. Balloon flotation [place] catheterization demonstrated normal right heart catheterization. Cardiac output 6.4 L. Mean pulmonary artery pressure of 15 mmHg. Coronary angiography demonstrated minimal coronary artery disease of 10% diffuse stenosis. No critical stenosis or occlusion noted. LV end-diastolic pressure of 12. No gradient across the aortic valve on pullback. Right wrist TR band applied. Venous sheath removed under manual pressure. The patient discharged home the same day. João Nicholson MD KSB/MODL /[id number]
== END | disposition home or self-care (01) ==
LOC: CATH LAB 11:22
PROVIDERS: ATTEND Internal Medicine Interventional Cardiology
DX: I25.118 Atherosclerotic heart disease of native coronary artery with other forms of angina pectoris (principal); R94.39 Abnormal result of other cardiovascular function study; I50.9 Heart failure, unspecified; Z01.812 Encounter for preprocedural laboratory examination; Z79.02 Long term (current) use of antithrombotics/antiplatelets
CPT/HCPCS: 36415; 84702; 93460; C1751; C1766; C1769 ×3; C1887; J2001; J2250; J3010; J7030

== ENCOUNTER → 2022-05-30 | Outpatient (CLI) | payer OTHER ==
[~2022-05-30] MED LIST changes: -ALPRAZOLAM 0.5 MG TAB ONE; -DIPHENHYDRAMINE HCL 25 MG CAP ONE; -FENTANYL CITRATE/PF 100MCG/2 ML INJ ONE; -HEPARIN SOD/SOD CHLORIDE 2,000 ML ONE; +IOPAMIDOL 370 MG/ML 100 ML INFUS..BTL INJ ONE; -LIDOCAINE HCL 2% LOCAL 20 ML VIAL ONE; -MIDAZOLAM HCL 2 MG/2 ML VIAL ONE; -SODIUM CHLORIDE 0.9% 1000ML 1,000 ML ONE
[2022-05-30 09:34] LABS: CREATININE, SERUM 0.79 mg/dL (0.57-1.11)
== END ==
LOC: CT 08:07
PROVIDERS: ATTEND Family Medicine
DX: R19.05 Periumbilic swelling, mass or lump (principal)
CPT/HCPCS: 36415; 74177; 82565; 84520; Q9967

== ENCOUNTER → 2022-07-23 | Day surgery (SDC) | payer OTHER ==
[2022-07-20 09:43] LABS: BASOPHILS % 0.5 % (0.0-1.0); EOSINOPHILS # (AUTO) 0.1 (0.0-0.4); EOSINOPHILS % 1.7 % (0.0-6.0); HEMATOCRIT 45.6 % (34.2-44.1); HEMOGLOBIN 13.6 g/dL (12.0-16.0); LYMPHOCYTES # (AUTO) 2.1 (1.0-3.2); LYMPHOCYTES % 32.3 % (18.0-39.1); MEAN CORPUSCULAR HEMOGLOBIN 26.6 pg (28-32); MEAN CORPUSCULAR HGB CONC 29.8 g/dL (31-35); MEAN CORPUSCULAR VOLUME 89.2 fL (81-99); MONOCYTES # (AUTO) 0.4 (0.2-0.8); MONOCYTES % 5.6 % (4.4-11.3); NEUTROPHILS # (AUTO) 3.9 (2.1-6.9); NEUTROPHILS % 59.6 % (38.7-80.0); PLATELET COUNT 323 x10e3/uL (140-360); RED BLOOD COUNT 5.11 x10e6/uL (3.6-5.1); RED CELL DISTRIBUTION WIDTH 13.4 % (11.7-14.4)
[2022-07-20 10:08] LABS: CALCIUM 9.7 mg/dL (8.4-10.2); CREATININE, SERUM 0.91 mg/dL (0.57-1.11)
[2022-07-20 12:44] LABS: EOSINOPHILS % (MANUAL) 12 % (0-7); LYMPHOCYTES % (MANUAL) 26 % (19-48); MONOCYTES % (MANUAL) 5 % (3.4-9.0); NEUTROPHILS % (MANUAL) 51 % (40-74); PLATELET ESTIMATE ADEQUATE; PLATELET MORPHOLOGY COMMENT NORMAL; RBC MORPHOLOGY COMMENT NORMAL
[~2022-07-23] MED LIST changes: +ACETAMINOPHEN 1000 MG/100 ML 100 ML IV ONE; +BUPIVACAINE 0.5%/EPI 30 ML SDV INJ ONE; +BUPIVACAINE HCL 0.5% INJ 30 ML VIAL INJ ONE; +CEFAZOLIN SODIUM 2 GM ONE; +DEXAMETHASONE SOD PHOS INJ 4 MG/ML SDV ONE; +DEXMEDETOMIDINE HCL 2 ML ONE; +ENOXAPARIN SOD INJ 40 MG/0.4 ML SYR SC ONE; +EPHEDRINE SULFATE INJ 50 MG/ML VIAL ONE; +FENTANYL CITRATE/PF 100MCG/2 ML INJ ONE; +FISH OIL 1,2001 EAC1; +FISH OIL 1,2001 EACH; +GLYCOPYRROLATE INJ 0.2 MG/ML VIAL ONE; +HYDROCODONE/APAP 7.5MG-325MG 1 EA TAB ONE; +HYDROMORPHONE 1MG/1ML INJ ONE; -IOPAMIDOL 370 MG/ML 100 ML INFUS..BTL INJ ONE; +KETAMINE HCL INJ 50 MG/ML 10 ML VIAL ONE; +LIDOCAINE HCL 2% LOCAL INJ 5 ML SDV VIAL INJ ONE; +MIDAZOLAM HCL 2 MG/2 ML VIAL ONE; +ONDANSETRON HCL INJ 2MG/ML 2ML 2 MG/ML VIAL ONE; +POVIDONE IODINE 0.05% 0.05 % ML PO ONE; +PROPOFOL IV EMULSION 10 MG/ML 20 ML VIAL ONE; +ROCURONIUM BROMIDE 10 MG/ML 5ML VIAL IV ONE; +SEVOFLURANE INHAL SOLN 250 ML PEN BTL ONE; +SODIUM CHLORIDE 0.9% 100 ML ONE; +SUCCINYLCHOLINE CHLORIDE 20 MG/ML 10ML VIAL ONE; +SUGAMMADEX SODIUM 200 MG/2 ML VIAL IV ONE; +VITAMIN D310 MCG; +[UNRECOGNIZED DRUG - OTHER] SQ
[2022-07-23 11:55] VITALS: BP 116/71
== END | disposition home or self-care (01) ==
LOC: OR 07:10
PROVIDERS: ATTEND Surgery
DX: K43.6 Other and unspecified ventral hernia with obstruction, without gangrene (principal); G47.33 Obstructive sleep apnea (adult) (pediatric); E11.9 Type 2 diabetes mellitus without complications; I10 Essential (primary) hypertension; E78.5 Hyperlipidemia, unspecified; E66.9 Obesity, unspecified; Z01.810 Encounter for preprocedural cardiovascular examination; Z01.812 Encounter for preprocedural laboratory examination; Z20.822 Contact with and (suspected) exposure to COVID-19; Z79.02 Long term (current) use of antithrombotics/antiplatelets; Z79.899 Other long term (current) drug therapy; Z86.711 Personal history of pulmonary embolism
CPT/HCPCS: 0223U; 36415 ×2; 49594; 80048; 84702; 85025; 88302; 93005; C1781; J0131; J0330; J0690; J1100; J1170; J1650; J2001; J2250; J2405; J2704; J3010; J7050

== ENCOUNTER 2022-08-28 17:16 | Observation (INO) | payer OTHER ==
[~2022-08-28] VITALS: Ht 172.7 cm; Wt 186.0 kg
[~2022-08-28 17:16] MED LIST changes: -ACETAMINOPHEN 1000 MG/100 ML 100 ML IV ONE; -BUPIVACAINE 0.5%/EPI 30 ML SDV INJ ONE; -BUPIVACAINE HCL 0.5% INJ 30 ML VIAL INJ ONE; -CEFAZOLIN SODIUM 2 GM ONE; -DEXAMETHASONE SOD PHOS INJ 4 MG/ML SDV ONE; -DEXMEDETOMIDINE HCL 2 ML ONE; -ENOXAPARIN SOD INJ 40 MG/0.4 ML SYR SC ONE; -EPHEDRINE SULFATE INJ 50 MG/ML VIAL ONE; -FENTANYL CITRATE/PF 100MCG/2 ML INJ ONE; -GLYCOPYRROLATE INJ 0.2 MG/ML VIAL ONE; -HYDROCODONE/APAP 7.5MG-325MG 1 EA TAB ONE; -HYDROMORPHONE 1MG/1ML INJ ONE; -KETAMINE HCL INJ 50 MG/ML 10 ML VIAL ONE; -LIDOCAINE HCL 2% LOCAL INJ 5 ML SDV VIAL INJ ONE; -MIDAZOLAM HCL 2 MG/2 ML VIAL ONE; -ONDANSETRON HCL INJ 2MG/ML 2ML 2 MG/ML VIAL ONE; -POVIDONE IODINE 0.05% 0.05 % ML PO ONE; -PROPOFOL IV EMULSION 10 MG/ML 20 ML VIAL ONE; -ROCURONIUM BROMIDE 10 MG/ML 5ML VIAL IV ONE; -SEVOFLURANE INHAL SOLN 250 ML PEN BTL ONE; -SODIUM CHLORIDE 0.9% 100 ML ONE; -SUCCINYLCHOLINE CHLORIDE 20 MG/ML 10ML VIAL ONE; -SUGAMMADEX SODIUM 200 MG/2 ML VIAL IV ONE
[2022-08-28] MEDS ORDERED: ONDANSETRON HCL INJ 2MG/ML 2ML 2 MG/ML VIAL IV STA (17:21)
[2022-08-28] MEDS ORDERED: SODIUM CHLORIDE 0.9% 1000ML 1,000 ML IV ONE (17:30)
[2022-08-28] MEDS ORDERED: ONDANSETRON HCL INJ 2MG/ML 2ML 2 MG/ML VIAL IV PRN (17:30)
[2022-08-28 18:01] LABS: BASOPHILS % 0.3 % (0.0-1.0); EOSINOPHILS # (AUTO) 0.2 (0.0-0.4); EOSINOPHILS % 1.8 % (0.0-6.0); HEMATOCRIT 38.4 % (34.2-44.1); HEMOGLOBIN 12.3 g/dL (12.0-16.0); LYMPHOCYTES # (AUTO) 2.6 (1.0-3.2); LYMPHOCYTES % 22.5 % (18.0-39.1); MEAN CORPUSCULAR HEMOGLOBIN 26.5 pg (28-32); MEAN CORPUSCULAR VOLUME 82.6 fL (81-99); MONOCYTES # (AUTO) 0.8 (0.2-0.8); NEUTROPHILS # (AUTO) 7.8 (2.1-6.9); NEUTROPHILS % 67.9 % (38.7-80.0); PLATELET COUNT 437 x10e3/uL (140-360); RED BLOOD COUNT 4.65 x10e6/uL (3.6-5.1); RED CELL DISTRIBUTION WIDTH 13.4 % (11.7-14.4)
[2022-08-28 18:13] LABS: INR 1.43; PROTHROMBIN TIME 17.6 seconds (11.9-14.5)
[2022-08-28 18:14] LABS: PARTIAL THROMBOPLASTIN TIME 39.8 seconds (23.8-35.5)
[2022-08-28 18:23] LABS: ALANINE AMINOTRANSFERASE 19 IU/L (0-55); ALBUMIN/GLOBULIN RATIO 0.7 (0.8-2.0); ALKALINE PHOSPHATASE 96 IU/L (40-150); ANION GAP 16.7 mmol/L (8-16); BLOOD UREA NITROGEN 15 mg/dL (7-26); BUN/CREATININE RATIO 18 (6-25); CALCIUM 9.7 mg/dL (8.4-10.2); CARBON DIOXIDE 23 mmol/L (22-29); CHLORIDE 102 mmol/L (98-107); CREATININE, SERUM 0.84 mg/dL (0.57-1.11); GLUCOSE 123 mg/dL (74-118); POTASSIUM 3.7 mmol/L (3.5-5.1); SODIUM 138 mmol/L (136-145)
[2022-08-28] MEDS ORDERED: IOPAMIDOL 370 MG/ML 100 ML INFUS..BTL INJ ONE (18:44)
[2022-08-28] MEDS ORDERED: ACETAMINOPHEN 325 MG TAB PO PRN (19:15)
[2022-08-28 21:20] VITALS: BP 100/48
[2022-08-28] MEDS: MELATONIN 5 MG TABLET PO SCH (21:53)
[2022-08-28] MEDS: SODIUM CHLORIDE 0.9% 1000ML 1,000 ML IV SCH (21:54)
[2022-08-29] VITALS (7 sets, daily range): BP systolic 89–127; BP diastolic 49–67
[2022-08-29] MEDS: SODIUM CHLORIDE 0.9% 1000ML 1,000 ML IV SCH ×3 (01:30→17:59)
[2022-08-29 06:30] LABS: BASOPHILS % 0.4 % (0.0-1.0); EOSINOPHILS # (AUTO) 0.2 (0.0-0.4); EOSINOPHILS % 2.7 % (0.0-6.0); HEMOGLOBIN 10.8 g/dL (12.0-16.0); LYMPHOCYTES # (AUTO) 1.5 (1.0-3.2); LYMPHOCYTES % 20.4 % (18.0-39.1); MEAN CORPUSCULAR HEMOGLOBIN 26.3 pg (28-32); MEAN CORPUSCULAR HGB CONC 31.8 g/dL (31-35); MEAN CORPUSCULAR VOLUME 82.7 fL (81-99); MONOCYTES # (AUTO) 0.6 (0.2-0.8); MONOCYTES % 8.1 % (4.4-11.3); NEUTROPHILS # (AUTO) 5.1 (2.1-6.9); PLATELET COUNT 335 x10e3/uL (140-360); RED BLOOD COUNT 4.11 x10e6/uL (3.6-5.1); RED CELL DISTRIBUTION WIDTH 13.5 % (11.7-14.4)
[2022-08-29 07:09] LABS: ALBUMIN 2.7 g/dL (3.5-5.0); ALBUMIN/GLOBULIN RATIO 0.7 (0.8-2.0); ANION GAP 14.9 mmol/L (8-16); CALCIUM 8.7 mg/dL (8.4-10.2); CREATININE, SERUM 0.77 mg/dL (0.57-1.11); POTASSIUM 3.9 mmol/L (3.5-5.1)
[2022-08-29 08:45] LABS: FERRITIN 167.59 ng/mL (4.63-204.00)
[2022-08-29] MEDS ORDERED: ATORVASTATIN 40 MG TAB PO SCH (09:00)
[2022-08-29] MEDS ORDERED: SENNOSIDES 8.6 MG TAB PO SCH (09:00)
[2022-08-29] MEDS ORDERED: DOCUSATE SODIUM 100 MG CAP PO SCH (09:00)
[2022-08-29] MEDS ORDERED: EZETIMIBE 10 MG TAB PO SCH (09:00)
[2022-08-29] MEDS ORDERED: OLMESARTAN 20 MG TAB PO SCH (09:00)
[2022-08-29] MEDS ORDERED: HYDROCHLOROTHIAZIDE 25 MG TAB PO SCH (09:00)
[2022-08-29] MEDS ORDERED: HYDROCODONE/APAP 7.5MG-325MG 1 EA TAB PO PRN (10:45)
[2022-08-29] MEDS: HYDROMORPHONE 1MG/1ML INJ IV PRN ×2 (10:46→22:20)
[2022-08-29] MEDS ORDERED: CEFTRIAXONE 2 GM in SODIUM CHLORIDE 0.9% 100 ML IV SCH (18:00)
[2022-08-29] MEDS: OLMESARTAN 20 MG TAB PO SCH (21:00)
[2022-08-29] MEDS: MELATONIN 5 MG TABLET PO SCH (21:00)
[2022-08-29] MEDS: SENNOSIDES 8.6 MG TAB PO SCH (22:12)
[2022-08-29] MEDS: HYDROCHLOROTHIAZIDE 25 MG TAB PO SCH (22:13)
[2022-08-29] MEDS: ATORVASTATIN 40 MG TAB PO SCH (22:13)
[2022-08-29] MEDS: DOCUSATE SODIUM 100 MG CAP PO SCH (22:13)
[2022-08-29] MEDS: EZETIMIBE 10 MG TAB PO SCH (22:14)
[2022-08-30 00:44] VITALS: BP 107/69
[2022-08-30] MEDS: SODIUM CHLORIDE 0.9% 1000ML 1,000 ML IV SCH ×2 (01:30→09:13)
[2022-08-30 04:59] LABS: BASOPHILS % 0.3 % (0.0-1.0); EOSINOPHILS # (AUTO) 0.2 (0.0-0.4); EOSINOPHILS % 3.5 % (0.0-6.0); HEMATOCRIT 32.8 % (34.2-44.1); HEMOGLOBIN 10.4 g/dL (12.0-16.0); MEAN CORPUSCULAR HEMOGLOBIN 26.4 pg (28-32); MEAN CORPUSCULAR HGB CONC 31.7 g/dL (31-35); MEAN CORPUSCULAR VOLUME 83.2 fL (81-99); MONOCYTES # (AUTO) 0.5 (0.2-0.8); MONOCYTES % 7.8 % (4.4-11.3); NEUTROPHILS # (AUTO) 4.1 (2.1-6.9); NEUTROPHILS % 58.8 % (38.7-80.0); PLATELET COUNT 334 x10e3/uL (140-360); RED BLOOD COUNT 3.94 x10e6/uL (3.6-5.1); RED CELL DISTRIBUTION WIDTH 13.4 % (11.7-14.4)
[2022-08-30 05:20] LABS: ALBUMIN 2.5 g/dL (3.5-5.0); ALBUMIN/GLOBULIN RATIO 0.7 (0.8-2.0); ANION GAP 13.5 mmol/L (8-16); CALCIUM 8.3 mg/dL (8.4-10.2); CREATININE, SERUM 0.71 mg/dL (0.57-1.11); POTASSIUM 3.5 mmol/L (3.5-5.1)
[2022-08-30 06:00] VITALS: BP 121/42
[2022-08-30 08:00] VITALS: BP 116/65
[2022-08-30 08:14] VITALS: BP 116/65
[2022-08-30] MEDS ORDERED: FERROUS SULFATE 325 MG TAB PO SCH (09:00)
[2022-08-30] MEDS: OLMESARTAN 20 MG TAB PO SCH (09:06)
[2022-08-30] MEDS: EZETIMIBE 10 MG TAB PO SCH (09:06)
[2022-08-30] MEDS: ATORVASTATIN 40 MG TAB PO SCH (09:07)
[2022-08-30] MEDS: HYDROCHLOROTHIAZIDE 25 MG TAB PO SCH (09:07)
[2022-08-30] MEDS: DOCUSATE SODIUM 100 MG CAP PO SCH (09:07)
[2022-08-30] MEDS: SENNOSIDES 8.6 MG TAB PO SCH (09:07)
[2022-08-30] MEDS ORDERED: FEROSUL325 MG PO (11:03)
[2022-08-30 12:26] VITALS: BP 110/60
[2022-08-30 15:47] VITALS: BP 120/66
== END 2022-08-30 20:36 | disposition home or self-care (01) ==
LOC: ER 17:22 → ERHOLD 17:31 → MED/SURG 20:09
PROVIDERS: ADMIT Internal Medicine; ATTEND Internal Medicine
DX: L76.22 Postprocedural hemorrhage of skin and subcutaneous tissue following other procedure (principal); Z20.822 Contact with and (suspected) exposure to COVID-19; Z86.711 Personal history of pulmonary embolism; Z79.01 Long term (current) use of anticoagulants; I10 Essential (primary) hypertension; R10.9 Unspecified abdominal pain; E66.01 Morbid (severe) obesity due to excess calories; Z68.44 Body mass index [BMI] 60.0-69.9, adult; E78.2 Mixed hyperlipidemia
CPT/HCPCS: 36415 ×3; 74177; 80053 ×3; 82607; 82728; 82746; 83036; 83540; 83605; 83735; 84466 ×2; 84702; 85025 ×3; 85610; 85730; 87040; 93005; 99284; G0378 ×3; J0696 ×2; J1170; J2405; J7030 ×3; J7050; Q9967; U0002